=== PATIENT | male | born 1965 | race Caucasian/White ===

== ENCOUNTER 2018-07-01 12:52 | Emergency (ER) | payer MEDICARE | END 2018-07-01 13:33 | disposition home or self-care (01) | LOC: BURERS 12:52 | DX: F15.180 Other stimulant abuse with stimulant-induced anxiety disorder (principal); G80.9 Cerebral palsy, unspecified; I10 Essential (primary) hypertension; F41.9 Anxiety disorder, unspecified; F32.9 Major depressive disorder, single episode, unspecified ==

== ENCOUNTER 2020-06-24 17:22 | Emergency (ER) | payer MEDICARE, MEDICAID ==
[2020-06-25 05:28] LABS: SARS-CoV-2 PCR by NAA Not Detected (NotDetected)
== END 2020-06-24 18:15 | disposition home or self-care (01) ==
LOC: BURERS 17:22
DX: R05 Cough (principal); R43.8 Other disturbances of smell and taste; F41.9 Anxiety disorder, unspecified; Z20.822 Contact with and (suspected) exposure to COVID-19
CPT/HCPCS: U0003; U0005; 87635; 99283

== ENCOUNTER 2020-09-02 20:58 | Emergency (ER) | payer MEDICAID, MEDICARE, OTHER ==
[2020-09-02] MEDS ORDERED: Lorazepam 2 MG/ML VIAL ONE (21:17)
== END 2020-09-02 21:58 | disposition short-term general hospital (02) ==
LOC: BURERS 20:58
DX: S70.11XA Contusion of right thigh, initial encounter (principal); F41.9 Anxiety disorder, unspecified; R79.1 Abnormal coagulation profile; W54.8XXA Other contact with dog, initial encounter; Z79.899 Other long term (current) drug therapy; Y92.009 Unspecified place in unspecified non-institutional (private) residence as the place of occurrence of the external cause
CPT/HCPCS: 85379; 93005; 96374; J2060

== ENCOUNTER 2021-10-17 18:39 | Emergency (ER) | payer OTHER, MEDICARE ==
[2021-10-17] MEDS ORDERED: Boostrix 0.5 ML (Tdap) VIAL ONE (18:57)
[2021-10-17] MEDS ORDERED: Lidocaine 1% PF 5 ML VIAL ONE (19:03)
[2021-10-17] MEDS ORDERED: Bacitracin 1 PK ONE (20:16)
== END 2021-10-17 20:58 | disposition home or self-care (01) ==
LOC: BURERS 18:39
DX: S01.85XA Open bite of other part of head, initial encounter (principal); S61.452A Open bite of left hand, initial encounter; W54.0XXA Bitten by dog, initial encounter; Y92.009 Unspecified place in unspecified non-institutional (private) residence as the place of occurrence of the external cause
CPT/HCPCS: 12011; 90471; 90715